=== PATIENT | male | born 1995 | race Asian ===

== ENCOUNTER 2024-02-11 05:49 | Day surgery (SDC) | payer MEDICAID ==
[~2024-02-11] VITALS: Ht 180.3 cm; Wt 79.5 kg
[~2024-02-11 05:49] MED LIST: CYCLOPENTOLATE HCL 1% 2 ML OPHTHALMIC SOLUTION ONE; KETOROLAC TROMETHAMINE 0.5% 5 ML OPHTHALMIC SOLUTION ONE; MOXIFLOXACIN HCL 0.5% 3 ML OPHTHALMIC SOLUTION ONE; PHENYLEPHRINE HCL 2.5% 2 ML OPHTHALMIC SOLUTION ONE; RINGERS SOLUTION,LACTATED 500 ML IV ONE; TETRACAINE HCL/PF 0.5% 4 ML OPHTHALMIC SOLUTION ONE; TROPICAMIDE 1% 2 ML OPHTHALMIC SOLUTION ONE
[2024-02-11] MEDS ORDERED: MIDAZOLAM HCL 2 MG/2 ML VIAL IVP ONE (05:50)
[2024-02-11] MEDS ORDERED: FentaNYL CITRATE PF 100 MCG/2 ML VIAL IVP ONE (05:50)
[2024-02-11] MEDS ORDERED: HYALURONATE SOD 8.5MG/0.85ML 10 MG/ML SYRINGE IO ONE (05:50)
[2024-02-11] MEDS: RINGERS SOLUTION,LACTATED 500 ML IV ONE (06:19)
[2024-02-11] MEDS: MOXIFLOXACIN HCL 0.5% 3 ML OPHTHALMIC SOLUTION OD SCH (06:20)
[2024-02-11] MEDS: CYCLOPENTOLATE HCL 1% 2 ML OPHTHALMIC SOLUTION OD SCH (06:20)
[2024-02-11] MEDS: TROPICAMIDE 1% 2 ML OPHTHALMIC SOLUTION OD SCH (06:20)
[2024-02-11] MEDS: KETOROLAC TROMETHAMINE 0.5% 5 ML OPHTHALMIC SOLUTION OD SCH (06:20)
[2024-02-11] MEDS: PHENYLEPHRINE HCL 2.5% 2 ML OPHTHALMIC SOLUTION OD SCH (06:20)
[2024-02-11] MEDS ORDERED: PrednisoLONE ACETATE 1% 5 ML OPHTHALMIC SUSPENSION ONE (06:38)
[2024-02-11] MEDS ORDERED: PROPARACAINE HCL 0.5% 15 ML OPHTHALMIC SOLUTION OD ONE (07:00)
== END 2024-02-11 08:10 | disposition home or self-care (01) ==
LOC: SURGERY 05:49
PROVIDERS: ATTEND Ophthalmology
DX: H25.11 Age-related nuclear cataract, right eye (principal); Z98.890 Other specified postprocedural states; Z79.899 Other long term (current) drug therapy
CPT/HCPCS: 66984; J3010; J2250; J7120; V2632